=== PATIENT | female | born 2000 | race Caucasian/White ===

== ENCOUNTER 2023-10-19 19:54 | Observation (INO) | payer OTHER, SELFPAY ==
[2023-10-19] VITALS (7 sets, daily range): BP systolic 103–113; BP diastolic 64–78; PULSE 65–99; RESP 12–21; TEMP 36.6–37; O2SAT 100; BMI 21.9
--- NOTE | ~2023-10-19 | CT_ITS ---
EXAMINATION: CTA BRAIN/CAROTID DATE: 10/21/2023 12:23 INDICATION: Left hemispheric dysfunction TECHNIQUE: Computed tomographic angiography (CTA) of the head and neck was performed with 100 mL Omni paque-350 intravenous contrast. Multiplanar reconstructions and maximum intensity projection 3D-recon structions of the carotid arteries and of the intracranial arteries were created by the technologist on a separate workstation. Precontrast CT of the head was also obtained. Automated exposure control and iterative reconstruction technique were employed.The dose-length product was 1553.54 mGy-cm. COMPARISON: Head CT dated 10/19/2023 and brain MR dated 10/20/2023 FINDINGS: Carotid arteries: The visualized aortic arch and great vessels arising from the arch are normal in caliber with no athe rosclerotic plaque or dissection. There is no evident atherosclerotic plaque with 0% stenosis of the right and left carotid bulbs relative to normal distal artery lumen diameter (NASCET criteria). The v isualized upper lungs are clear. Cervical spine and cervical soft tissues are unremarkable. Head: Again seen is subtle decreased attenuation and swelling of the white matter and in places also includ ing the mello matter with loss of the mello-white matter differentiation in the anterior left frontal a nd temporal lobes. There was no corresponding restricted diffusion on the MRI from one day prior to s uggest acute infarct. There is small amount of associated mass effect with asymmetric narrowing of th e body the left lateral ventricle relative to the right and anterior predominant with up to 4 mm left -to-right midline shift. No acute intracranial hemorrhage or abnormal extra axial fluid collection. V entricles are normal and symmetric. No mass/mass effect. No abnormally enhancing brain lesions. The o rbits, paranasal sinuses and mastoid air cells are normal. Intracranial arteries There is no hemodynamically significant stenosis in the vertebral, basilar and internal carotid arter ies. Vertebral arteries are codominant. There are no aneurysms identified. Both A1 and P1 segments a re patent. There also patent anterior communicating and right posterior communicating arteries. Cereb ral arterial arborization appears symmetric. IMPRESSION: 1. No atherosclerotic plaque with 0% stenosis of the right carotid bulb relative to normal distal art romeo lumen diameter (NASCET criteria). 2. Normal cerebral CT angiogram. 3. Persistent edema involving both the white matter and focal regions of the mello matter in the left anterior frontal and temporal lobes with associated mass resulting in narrowing of the left lateral v entricle and up to 4 mm left to right midline shift anteriorly. No evident restricted diffusion on th e recent prior MRI to suggest acute infarction. Differential would also include infectious etiologies such as herpes encephalitis or neoplasm such as low-grade astrocytoma. Reviewed, dictated and finalized at location A. IMPRESSION: 1. No atherosclerotic plaque with 0% stenosis of the right carotid bulb relativ e to normal distal artery lumen diameter (NASCET criteria). 2. Normal cerebral CT angiogram. 3. Persistent edema involving both the white matter and focal regions of the gr ay matter in the left anterior frontal and temporal lobes with associated mass resulting in narrowing of the left lateral ventricle and up to 4 mm left to rig ht midline shift anteriorly. No evident restricted diffusion on the recent prio r MRI to suggest acute infarction. Differential would also include infectious e tiologies such as herpes encephalitis or neoplasm such as low-grade astrocytoma .
--- NOTE | ~2023-10-19 | CT_ITS ---
Non-contrast Head CT History: Seizure Technique: Axial non-contrast imaging of the brain was performed. Dose reduction technique was used on this scan by utilizing automated exposure control and iterative reconstruction technique. The dose -length product (DLP) was 605.33 mGy-cm. Findings: Suggestion of subtle loss of mello-white differentiation and subtle hypodensity in the anter ior left frontal lobe region, with subtle rightward midline shift of the anterior falx cerebri. The ventricles and subarachnoid spaces are normal in size. The calvarium appears normal. The visualized paranasal sinuses and mastoid air cells are clear. Impression: Subtle findings which raises the possibility of mild edematous change and possible mass effect in the left frontal lobe. Contrast-enhanced MRI of the brain recommended to better assess for any underlyin g structural abnormality or mass. Reviewed, dictated and finalized at [facility]. Impression: Subtle findings which raises the possibility of mild edematous change and possi ble mass effect in the left frontal lobe. Contrast-enhanced MRI of the brain re commended to better assess for any underlying structural abnormality or mass.
--- NOTE | ~2023-10-19 | MR_ITS ---
MRI of the brain Clinical History: Seizure Technique: Axial and sagittal T1-weighted images were acquired. These were followed by axial T2-weigh ac, diffusion weighted, gradient, and FLAIR images. Following intravenous administration of 12 cc Mu ltiHance gadolinium, T1-weighted fat-sat imaging was performed in the axial, coronal, and sagittal pl anes. Findings: There is extensive edematous change involving the left frontal lobe cortex and white matter with mild associated mass effect on the anterior falx cerebri. No restricted diffusion. No abnormal postcontrast enhancement or mass lesion identified. Remainder brain parenchyma is otherwise unremarkable. Ventricles and subarachnoid spaces otherwise ar e unremarkable. Paranasal sinuses and mastoid air cells are clear. Orbits are unremarkable. Major int racranial flow voids are intact. Sagittal midline structures are otherwise unremarkable. IMPRESSION: Extensive cortical and white matter edematous change of the left frontal lobe, without postcontrast e nhancement or definite evidence for underlying structural abnormality or mass. These findings are mos t likely post-ictal changes related to recent seizure activity. Consider follow-up exam in 1-2 months to assess for resolution. Reviewed, dictated and finalized at location . IMPRESSION: Extensive cortical and white matter edematous change of the left frontal lobe, without postcontrast enhancement or definite evidence for underlying structural abnormality or mass. These findings are most likely post-ictal changes related to recent seizure activity. Consider follow-up exam in 1-2 months to assess fo r resolution.
--- NOTE | 2023-10-19 20:21 | ED.GENADULT ---
HPI - General Adult General Chief complaint: Seizure Stated complaint: possible seizure-no history Time Seen by Provider: 10/19/23 20:14 History of Present Illness HPI narrative: 23 old female presents emergency department for evaluation after a suspected seizure while watching a movie. Has no prior history of epilepsy or seizures. Patient states that she was in the movie and family members stated that she had a seizure. Seizure lasted approximately 30 seconds. EMS was called. EMS states patient was postictal upon arrival. Upon arrival to the emergency department patient is still postictal but is more alert appropriate. Patient is present with both her sister and her mom. Related Data Home Medications Medication Instructions Recorded Confirmed No Home Medications 10/19/23 10/19/23 Allergies Allergy/AdvReac Type Severity Reaction Status Date / Time Penicillins Allergy Anaphylaxis Verified 10/19/23 23:30 Review of Systems Review of Systems: All systems reviewed & are unremarkable except as noted in HPI and below PMFSH Family History Family History (Updated 10/19/23 @ 23:22 by Jocelyn Villarreal RN) Grandparent Breast cancer Colon cancer Social History Social History Smoking status: Never smoker Second hand tobacco smoke exposure: No Alcohol intake: current Drinks per week: 1 Substance use: never Do You Feel Safe in your Home?: Yes Lack of Transportation: No Lack of Food: Sometimes True Current Housing: I Have Housing Concerned About Future Housing: No Difficulty Paying Gas/Electric Bills: No Difficulty Paying for Meds: No Currently Unemployed: No Education: Master's Degree or Higher Difficulty w/ Childcare or Family Care: No Spiritual care concerns: No Exam Narrative: APPEARANCE: Well appearing, no pain, no distress, well-nourished. HEAD: normocephalic, atraumatic. EYES: PERRLA/EOMI, conjunctivae clear. NOSE: Normal no drainage EARS:TMS clear with good light reflex. THROAT: Pharynx clear, no exudate. NECK: Supple. No adenopathy, no masses. RESPIRATORY: Airway patent, respirations nonlabored. Clear to auscultation bilaterally, no rales, rhonchi, wheezing. CARDIOVASCULAR: Regular rate and rhythm without murmurs rubs or gallops. ABDOMINAL: Soft, nontender, nondistended, normal bowel sounds MUSCULOSKELETAL: Moves all extremities. Strength/ROM intact, No edema, No calf tenderness. NEURO: Alert. Cranial nerves II through XII intact. Grossly intact SKIN: Warm, dry. Normal Color Course Course Emergency Course: patient will be admitted for further neurologic workup including MRI. Vital Signs Vital signs: Vital Signs Temperature 97.9 F 10/19/23 19:52 Pulse Rate 99 10/19/23 19:52 Respiratory Rate 10/19/23 19:52 Blood Pressure 113/78 10/19/23 19:52 Pulse Oximetry 100 10/19/23 19:52 Oxygen Delivery Room Air 10/19/23 19:52 Temperature 98.6 F 10/19/23 22:37 Pulse Rate 61 10/20/23 00:00 Respiratory Rate 10/19/23 22:37 Blood Pressure 103/64 10/19/23 22:37 Pulse Oximetry 100 10/19/23 22:37 Oxygen Delivery Room Air 10/19/23 23:31 Medical Decision Making MDM Narrative Medical decision making narrative: [age] old female presents to the emergency department for evaluation of new onset seizure. patient continued to be less post ictal on re-evaluations. Patient was afebrile with no leukocytosis and a stable hemoglobin of 13.1. Patient has no acute abnormalities on her CMP. UA was negative for acute infection. Head CT did show some edema of the left frontal lobe an MRI was requested. I discussed the case with Neurology and Dr. Rivers was comfortable consulting on this patient. Patient was admitted to the hospitalist an MRI was ordered. Patient family were updated on the recommendation for MRI, and on the findings of the head CT and that MRI would not be available until Saturday. They were comfortabl
[2023-10-19 20:57] LABS: Basophils Percent Auto 0.3 % (0.2-1.2); Eosinophils Absolute Auto 0.1 K/mm3 (0-0.3); Eosinophils Percent Auto 1.4 % (0-4.4); Hematocrit 38.5 % (37.0-47.0); Hemoglobin 13.1 g/dL (12.0-15.0); Immature Granulocyte Absolute 0.01 K/mm3 (0.00-0.031); Immature Granulocyte Percent A 0.2 % (0-0.5); Lymphocytes Absolute Auto 1.95 K/mm3 (0.9-3.2); Lymphocytes Percent Auto 30.8 % (18.3-44.2); Mean Corpuscular Hemoglobin 31.3 pg (26-34); Mean Corpuscular Volume 91.9 fl (80-100); Mean Platelet Volume 10.5 fl (7.4-10.4); Monocytes Absolute Auto 0.5 K/mm3 (0.1-0.6); Monocytes Percent Auto 8.5 % (2.6-8.5); Neutrophils Absolute Auto 3.7 K/mm3 (1.3-6.7); Neutrophils Percent Auto 58.8 % (45.5-73.1); Platelet Count Result 228 k/mm3 (150-375); Red Blood Count 4.19 M/mm3 (4.2-5.4); Red Cell Distribution Width 11.9 % (11.5-14.5); White Blood Count 6.3 K/mm3 (4.5-10.0)
[2023-10-19 21:07] LABS: Alanine Aminotransferase 17 U/L (6-35); Albumin Level 4.4 g/dL (3.5-5.1); Alkaline Phosphatase 42 U/L (38-126); Anion Gap 11 mmol/L (4-12); Aspartate Amino Transferase 21 U/L (14-36); Bilirubin,Total 0.6 mg/dL (0.2-1.3); Blood Urea Nitrogen 13 mg/dL (7-17); Calcium 9.1 mg/dL (8.4-10.2); Carbon Dioxide 23 mmol/L (22-30); Chloride 104 mmol/L (98-107); Estimated CRCL calculation 114 ml/min; Estimated Glomerular Filt Rate > 60; Glucose 89 mg/dL (65-110); Potassium 3.7 mmol/L (3.4-5.0); Sodium 138 mmol/L (137-145)
[2023-10-19 21:08] LABS: Lactic Acid Reflex 2.3 mmol/L (0.7-2.0)
--- NOTE | 2023-10-19 21:45 | PM.IMHP ---
H&P: HPI History of Present Illness Date/Time: 10/19/23 21:45 Chief Complaint: sizure Narrative: This is a 23-year-old female with known significant past medical history was at the movies with her family when she had a grand mal seizure episode. UPON ARRIVAL TO EMERGENCY ROOM PATIENT WAS POST ICTAL. PATIENT HAS BEEN IN HER USUAL STATE OF HEALTH UP UNTIL THIS POINT, DENIES ANY VISION CHANGES, HEADACHES, NAUSEA, VOMITING, CONSTIPATION, FEVERS, RIGORS, CHILLS DENIES PRODROMES. HERE AT THE TIME OF MY VISIT PATIENT WAS AWAKE ALERT ORIENTED X3 BUT HAS NO RECOLLECTION OF EVENTS. PRELIMINARY WORKUP WAS SIGNIFICANT FOR CT OF HEAD WITH CONCERNING FINDINGS. PATIENT HAS BEEN PLACED IN OBSERVATION Non-contrast Head CT History: Seizure Technique: Axial non-contrast imaging of the brain was performed. Dose reduction technique was used on this scan by utilizing automated exposure control and iterative reconstruction technique. The dose-length product (DLP) was 605.33 mGy-cm. Findings: Suggestion of subtle loss of mello-white differentiation and subtle hypodensity in the anterior left frontal lobe region, with subtle rightward midline shift of the anterior falx cerebri. The ventricles and subarachnoid spaces are normal in size. The calvarium appears normal. The visualized paranasal sinuses and mastoid air cells are clear. Impression: Subtle findings which raises the possibility of mild edematous change and possible mass effect in the left frontal lobe. Contrast-enhanced MRI of the brain recommended to better assess for any underlying structural abnormality or mass. Review of Systems Review of Systems: SEIZURE Constitutional: Constitutional: Denies chills, Denies fever(s), Denies headache(s) and Denies night sweats Eyes: Eyes: Denies change in vision ENT: Denies dysphagia, Denies vertigo, Denies dizziness and Denies odynophagia Cardiovascular: Cardiovascular: Denies chest pain and Denies lightheadedness Respiratory: Respiratory: Denies chest congestion and Denies cough Gastrointestinal: Gastrointestinal: Denies abdominal pain, Denies constipation, Denies nausea and Denies vomiting Genitourinary: Genitourinary: Denies dysuria Musculoskeletal: Musculoskeletal: Denies myalgias and Denies muscle weakness Integumentary/Breasts: Skin/Breast: Denies rash Neurologic: Denies focal weakness, Reports seizure-like activity and Denies Sensory deficit (Neuro) Psychiatric: Psychiatric: Reports no additional psychiatric complaints and Reports as per HPI Endocrine: Endocrine: Denies cold intolerance, Denies heat intolerance, Denies polyphagia, Denies polydipsia, Denies polyuria and Denies palpitations Hematologic/Lymphatic: Hematologic/Lymphatic: Reports no additional hematologic/lymphatic complaints and Reports as per HPI Allergic/Immunologic: Allergic/Immunologic: Reports no additional allergic/immunologic complaints and Reports as per HPI [facility] Family History Family History Grandparent Breast cancer Colon cancer Social History Social History Smoking status: Never smoker Second hand tobacco smoke exposure: No Alcohol intake: current Drinks per week: 1 Substance use: never Do You Feel Safe in your Home?: Yes Lack of Transportation: No Lack of Food: Sometimes True Current Housing: I Have Housing Concerned About Future Housing: No Difficulty Paying Gas/Electric Bills: No Difficulty Paying for Meds: No Currently Unemployed: No Education: Master's Degree or Higher Difficulty w/ Childcare or Family Care: No Spiritual care concerns: No Meds Home Medications and Allergies Home Medications Medication Instructions Recorded Confirmed Type No Home Medications 10/19/23 10/19/23 History Allergies Allergy/AdvReac Type Severity Reaction Status Date / Time Penicillins Allergy Anaphylaxi
[2023-10-19 21:53] LABS: Appearance Urine Clear (Clear); Bilirubin Urine Negative (Negative); Blood Urine Negative (Negative); Color Urine Yellow (Yellow); Glucose Urine UA Negative (Negative); Ketones Urine Negative (Negative); Leukocyte Esterase Ur Negative LEU/UL (Negative); Nitrate Urine Negative (Negative); Protein Urine Negative (Negative); Urobilinogen Urine 0.2 mg/dL (<2.0); pH Urine 7.5 (5.0-9.0)
[2023-10-19 21:55] LABS: Add Urine Microscopic? NO
[2023-10-19] MEDS: ACETAMINOPHEN 325 MG TABLET 650 MG PO (22:01)
[2023-10-19] MEDS: ONDANSETRON INJ 4 MG/2 ML VIAL (22:02)
--- NOTE | 2023-10-19 22:48 | ADMGEN ---
This patient, Jeanine Sanchez, was admitted to Medical Room 349-01. Patient/family oriented to hospital policies and general routines including ID bracelet, bed and alarms, visiting hours, pain management, procedures, bathroom and other care routines, personal items, smoking policy, room service/diet, and visiting hours. Information on how to activate the Rapid Response Team has been discussed. Patient/Family are encouraged to report perceived risks to care and to ask questions if they do not understand what they are told or what they should do.
[2023-10-19 23:55] LABS: Reflex Lactic Acid Yes or No Add Lactic
[2023-10-20] VITALS (9 sets, daily range): BP systolic 89–106; BP diastolic 43–53; PULSE 47–83; RESP 18–20; TEMP 36.4–36.6; O2SAT 98–100
[2023-10-20 00:34] LABS: Lactic Acid 0.9 mmol/L (0.7-2.0)
--- NOTE | 2023-10-20 12:21 | WPDNEURCNPN ---
Assessment and Plan Assessment and plan (1) Seizure: Code(s): R56.9 - Unspecified convulsions Status: Acute Plan Ms. Sanchez is a 23 year old female with no significant past medical history presenting due to concerns for new onset seizure that is seemingly unprovoked. CT head showed some edematous changes in the L frontal lobe, which can be seen after a seizure. Will obtain MRI brain to rule out mass or other structural defect. Plan for routine EEG tomorrow. I discussed with patient that given this is her first time seizure, there is a 50% chance she may have another seizure in the future. Typically I wait until patient has had two unprovoked seizures prior to starting anti-seizure medications, unless of course her MRI brain shows a structural cause for her seizure or EEG shows abnormalities that would suggest risk of recurrence. I would also be okay starting seizure medication at this point if patient wishes. She would like to discuss with family and weight until the imaging/EEG are done to decide which I think is appropriate. Regardless of decision for seizure medication, seizure precautions and restrictions are in place. I discussed seizure precautions and let her know that she cannot drive or operate heavy machinery until she is seizure free for at least six months. If patient is agreeable to start anti-seizure medication, would recommend Keppra 500mg BID. Consult date: 10/20/23 Reason for consult: New onset seizure HPI: Jeanine Sanchez is a 23 year old female with no significant past medical history presenting due to concerns for new onset seizure. Patient presented on 10/18 after have a seizure while at the movie theatre. Patient was sitting in between her mother and sister. During the previews of the movie, patient states she turned to her mom to try to speak but was unable to. They noted that she had movement of one side of the face but none on the other side of the face. She is not sure which side was involved as she has no memory of the event. She was reportedly then foaming at the mouth and has full body jerking movements. There was no incontinence. The episode lasted about 30 seconds and then self-resolved. EMS was called. Patient was confused afterwards. Today she feels back to her baseline. She denies any prior history of seizures, TBI, meningitis. There is a family history of seizures in her paternal cousin (he had seizures in childhood and outgrew them). Patient denies any drug or alcohol use. UDS was not obtained. CT head showed subtle findings raising the possibility of mild edematous changes/possible mass effect in the L frontal lobe. Patient is currently visiting from [place] but will be moving to [place] permanently for work in about 6 weeks. 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 Review of Systems Review of Systems: All systems reviewed & are unremarkable except as noted in HPI and below PMFSH Family History Family History Grandparent Breast cancer Colon cancer Social History Social History Smoking status: Never smoker Second hand tobacco smoke exposure: No Alcohol intake: current Drinks per week: 1 Substance use: never Do You Feel Safe in your Home?: Yes Lack of Transportation: No Lack of Food: Sometimes True Current Housing: I Have Housing Concerned About Future Housing: No Difficulty Paying Gas/Electric Bills: No Difficulty Paying for Meds: No Currently Unemployed: No Education: Master's Degree or Higher Difficulty w/ Childcare or Family Care: No Spiritual care concerns: No Meds Home Medications and Allergies Home Medications Medication Instructions Recorded Confirmed Type No Home Medications 10/19/23 10/19/23 History Allergies Allergy/AdvReac Type Severity Reaction Status Date / Time Penicillins Aller
--- NOTE | 2023-10-20 12:58 | PM.IMPN ---
Progress Note: A&P Assessment and Plan (1) Seizure: Code(s): R56.9 - Unspecified convulsions Status: Acute Assessment and Plan: MRI brain done and report pending EEG for 10/20 Patient and family considering whether to begin seizure medication now after her 1st episode or to defer in order to determine whether she will have another episode They understand treatment is recommended if MRI or EEG show structural or electrical abnormality, respectively Subjective Date/time seen: 10/20/23 12:58 Interval history: Admitted 10/19 after experiencing new onset generalized tonic colonic seizure in a movie theater. No prior history of seizures febrile convulsions or head trauma. No prior medical issues of any type. Rare migraine headaches. Tolerated diet. Did not injure herself during the seizure. Was not incontinent during the seizure. Review of Systems Review of Systems: All systems reviewed & are unremarkable except as noted in HPI and below Exam Narrative: HEENT: PERRL, sclerae nonicteric, pharyngeal mucosa pink and intact NECK: No JVD, adenopathy, or thyromegaly CHEST: Clear to auscultation. Normal effort. HEART: NL S1/S2, regular, no murmur ABDOMEN: BS+, soft, nontender, no mass, no bruits EXTREMITIES: No cyanosis, edema, or clubbing NEUROLOGIC: CN intact and symmetric to inspection. MUSCULOSKELETAL: Tone and strength symmetric. PSYCH: Alert. Oriented to person, place, and time. Objective Data Vital Signs Vital Signs: Vital Signs - 24 hr 10/19/23 19:52 10/19/23 19:56 10/19/23 19:56 Temperature 97.9 F Pulse Rate 99 93 Respiratory Rate 20 Blood Pressure 113/78 Pulse Oximetry 100 100 Oxygen Delivery Room Air Room Air 10/19/23 19:56 10/19/23 21:15 10/19/23 21:33 Temperature Pulse Rate 83 87 Respiratory Rate 21 H 14 Blood Pressure 111/74 Pulse Oximetry 100 100 Oxygen Delivery Room Air 10/19/23 21:45 10/19/23 22:00 10/19/23 23:31 Temperature Pulse Rate 80 73 Respiratory Rate 12 13 Blood Pressure Pulse Oximetry 100 100 Oxygen Delivery Room Air 10/19/23 22:37 10/20/23 00:00 10/20/23 04:00 Temperature 98.6 F Pulse Rate 65 61 47 L Respiratory Rate 20 Blood Pressure 103/64 Pulse Oximetry 100 Oxygen Delivery 10/20/23 06:00 10/20/23 07:41 10/20/23 08:00 Temperature 97.9 F Pulse Rate 53 L Respiratory Rate 20 Blood Pressure 89/43 L Pulse Oximetry 100 99 Oxygen Delivery Room Air Room Air 10/20/23 08:00 Temperature Pulse Rate 53 L Respiratory Rate Blood Pressure Pulse Oximetry Oxygen Delivery Intake/Output Intake/Output: Intake & Output 10/17/23 10/18/23 10/19/23 10/20/23 23:59 23:59 23:59 23:59 Intake Total 480 Balance 480 Meds/Results Medications: Active Medications Generic Name Dose Route Start Last Admin Trade Name Freq PRN Reason Stop Dose Admin Acetaminophen 650 mg 10/19/23 21:39 10/19/23 22:01 Acetaminophen 325 Mg Tablet PO 650 mg Q4H PRN Administration Mild Pain (1-3) or Fever Radiology Results: ITS Impressions Head CT 10/19/23 20:43 Impression: Subtle findings which raises the possibility of mild edematous change and possible mass effect in the left frontal lobe. Contrast-enhanced MRI of the brain recommended to better assess for any underlying structural abnormality or mass. Labs Labs: Laboratory Results - last 24 hr 10/19/23 10/19/23 10/20/23 20:52 21:44 00:18 WBC 6.3 RBC 4.19 L Hgb 13.1 Hct 38.5 MCV 91.9 MCH 31.3 MCHC 34.0 RDW 11.9 Plt Count 228 MPV 10.5 H Immature Gran % (Auto) 0.2 Neut % (Auto) 58.8 Lymph % (Auto) 30.8 [place] % (Auto) 8.5 Eos % (Auto) 1.4 Baso % (Auto) 0.3 Lymph # (Auto) 1.95 [place] # (Auto) 0.5 Eos # (Auto) 0.1 Baso # (Auto) 0.0 Abs Immat Gran (auto) 0.01 Absolute Neuts (auto) 3.7 Absolute Nucleated RBC 0.000 Nucleated RBC % 0
[2023-10-21] VITALS (10 sets, daily range): BP systolic 93–120; BP diastolic 60–78; PULSE 46–94; RESP 18–20; TEMP 36.1–36.4; O2SAT 93–100
--- NOTE | 2023-10-21 | ECHO_ITS ---
Patient Info Name: Jeanine Sanchez Age: 23 years : 2000 Gender: Female Ht: 65 in Wt: 132 lbs BSA: 1.66 m2 HR: 63 bpm BP: 93 / 60 mmHg Technical Quality: Good Exam Date: 10/21/2023 1:58 PM Exam Location: Echo Lab Patient Status: Outpatient Admit Date: 10/19/2023 Staff Ordering Physician: Una Voss MD Veterinary Anatomist: Sathish Childers RDCS Attending Provider: Jon Gore MD Referring Physician: Bipin GUILLERMO; Exam Type: CA echo doppler w bubble study Study Info Indications - Left hemispheric dysfunction Complete two-dimensional, color flow and Doppler transthoracic echocardiogram is performed with agitated saline. Contrast/Agitated Saline Contrast/Ag. Saline: Agitated Saline Amount: 8.00 ml Existing IV Access: Yes Summary 1. Left ventricular chamber dimension is normal. 2. Left ventricular systolic function is normal, estimated at 60-65%. 3. The left ventricular diastolic function is normal. 4. E/e' 5 is not elevated. 5. There is trace tricuspid valve regurgitation. 6. No pulmonary hypertension, estimated pulmonary arterial systolic pressure is 16 mmHg. Left Ventricle E/e' 5 is not elevated. Left ventricular chamber dimension is normal. Left ventricular systolic function is normal, estimated at 60-65%. The left ventricular diastolic function is normal. Right Ventricle Right ventricular systolic function is normal and with normal TAPSE 2.2 cm. Right ventricular chamber dimension is normal. Left Atria Left atrial chamber dimension is normal. Right Atria Right atrial chamber dimension is normal. Atrial Septum Agitated saline injection with valsalva maneuver opacified right side cardiac chambers without shunt to left side cardiac chambers. Intact interatrial septum visualized by 2D and agitated saline imaging. Aortic Valve The aortic valve is trileaflet. There is no aortic valve stenosis. There is no aortic valve regurgitation. Pulmonic Valve There is no pulmonic regurgitation. Mitral Valve There is no mitral valve stenosis. There is no mitral valve regurgitation. Tricuspid Valve There is trace tricuspid valve regurgitation. No pulmonary hypertension, estimated pulmonary arterial systolic pressure is 16 mmHg. Pericardium/Pleural There is no pericardial effusion. Inferior Vena Cava Normal inferior vena cava with >50% collapse upon inspiration consistent with normal right atrial pressure, 5 mmHg. Aorta The aortic root size at the sinus of Valsalva is normal. Left Ventricular Outflow Tract Name Value Normal LVOT 2D LVOT Diameter 2.0 cm LVOT Doppler LVOT Peak Gradient 5 mmHg LVOT Mean Gradient 3 mmHg LVOT VTI 22 cm LVOT VTI/AV VTI Ratio 0.9 LVOT Stroke Volume 72 ml LVOT CO 4.9 l/min LVOT CI 3.0 l/min/m2 Pulmonic Valve Name Value Normal
--- NOTE | 2023-10-21 11:49 | WPDNEUROPN ---
Progress Note: A&P Assessment and Plan (1) Brain edema: Code(s): G93.6 - Cerebral edema Status: Acute (2) Seizure: Code(s): R56.9 - Unspecified convulsions Status: Acute Plan The widespread edema is of concern in a 23-year-old without any history of trauma or prior history of any significant medical problems. Vasogenic edema or postictal state or trauma or encephalitis come to differential diagnosis however patient is fairly clear mentally and does not show any findings on the neurologic examination today. She has been fairly stable even yesterday. Just a echocardiogram with bubble study to look for any shunt and CT angiogram. I spoke to the hospitalist Dr. Alatorre and we also discussed the possibility of spinal tap if she has any changes in mental status. She is from [place] and would like to return back there. A follow-up study of the brain in 2 months is recommended unless of course there are any other issues. I also given the option to consider starting on seizure medication in view of the abnormality overall risk will be around 40% nevertheless it in option to them. An EEG is also pending. I shall go over the results of these. Thank you. Subjective Date/time seen: 10/21/23 11:49 Interval history: Patient's 23 year or presented with a seizure-like spell. Her mother and sister were present at the time of this evaluation. She is visiting from [place] and will be moving to this area in December. The patient today was in a movie [employer] when she had a sudden change in her physical condition where she could not talk and appear to be weak on the right side of the body. Her family thought that she was having a stroke. Thereafter she had a full-blown seizure and she was confused for a while. Ambulance was called and she was brought to the hospital. She now has returned back to normal and not had any further symptoms. She denies any headache nausea vomiting. She has not had any recent illness or injury. No prior history of stroke. MRI of the brain shows significant edema on the left side of the brain in frontal area extending widely. No tumor or vascular abnormalities identified on the contrast examination. Patient has not had any confusional state. No history of drug abuse. Review of Systems Review of Systems: No febrile illness. Patient denies any other symptoms at this time. Exam Const: General: cooperative, well developed and alert Orientation/consciousness: patient oriented x3 HENMT: Head: atraumatic Mouth: Yes oropharynx normal Eyes: Alignment and Position: position normal Pupils: Equal, round and reactive pupils present EOM: EOMs intact bilaterally Neck: Neck: supple Resp: Effort & Inspection: normal respiratory effort Neuro: General: patient oriented x3 Cranial nerves: Yes CN's II-XII intact bilaterally, Yes facial sensation intact/muscles of mastication intact, Yes Equal, round and reactive pupils present, Yes facial symmetry and Yes Midline tongue present Cognition (Neuro): normal cognition Speech: normal speech Gait exam (Neuro): Normal gait present Motor exam (neuro): 5/5 motor strength present throughout Sensory Exam: normal sensation Coordination: [id number] test normal and Normal rapid alternating movements of the distal upper extremity present (Neuro) Objective Data Vital Signs Vital Signs: Vital Signs - 24 hr 10/20/23 14:12 10/20/23 16:00 10/20/23 20:00 Temperature 36.6 C Pulse Rate 62 72 72 Respiratory Rate 18 18 Blood Pressure 106/53 L Pulse Oximetry 100 100 Oxygen Delivery Room Air 10/20/23 20:00 10/20/23 22:00 10/21/23 00:00 Temperature 36.4 C L Pulse Rate 83 77 53 L Respiratory Rate 20 Blood Pressure 104/53 L Pulse Oximetry 98 Oxygen Delivery 10/21/23 04:00 10/21/23 06:00 10/21/23 08:00 Temperature 36.1 C L Pulse Rate 46 L 63 Respiratory Rate 20 Blood Pressure 93/60 L Pulse Oximetry 100 Oxygen Del
--- NOTE | 2023-10-21 12:48 | ECG_ITS ---
Test Date: 2023-10-21 13:01:12 Measurements Intervals [place] Rate: 62 P: 70 [place]: 145 QRS: 61 QRSD: 79 T: 58 QT: 374 QTc: 381 Interpretive Statements SINUS RHYTHM WITH SINUS ARRHYTHMIA NORMAL ECG No previous ECG available for comparison Electronically Signed On 10-21-2023 18:03:30 CDT by Daniel Salgado D.O.
--- NOTE | 2023-10-21 16:59 | PM.IMPN ---
Progress Note: A&P Assessment and Plan (1) Brain edema: Code(s): G93.6 - Cerebral edema Status: Acute (2) Seizure: Code(s): R56.9 - Unspecified convulsions Status: Acute Plan Discussed with Dr. Voss. Patient has cerebral edema with mass effect status post and mild seizure. However, unable to rule out other serious etiologies and unclear if this cerebral edema is a cause or result of the seizure. Patient no longer appropriate for stay at this facility. Transfer [facility] to [facility] has been [facility]. Continue close monitoring and await transfer. Seizure precautions. Full code. Lovenox. Subjective Date/time seen: 10/21/23 16:59 Interval history: Complaining of worsening blurry vision. No other complaints. Review of Systems Review of Systems: All systems reviewed & are unremarkable except as noted in HPI and below (Subjective) Exam Const: General: comfortable and no acute distress Eyes: Pupils: Equal, round and reactive pupils present Neck: Neck: supple Resp: Effort & Inspection: normal respiratory effort Auscultation: clear to auscultation bilaterally Cardio: Rate: regular rate Rhythm: regular rhythm GI: GI Palp: Yes Soft to palpation Objective Data Vital Signs Vital Signs: Vital Signs - 24 hr 10/20/23 20:00 10/20/23 20:00 10/20/23 22:00 Temperature 97.5 F L Pulse Rate 72 83 77 Respiratory Rate 18 20 Blood Pressure 104/53 L Pulse Oximetry 100 98 Oxygen Delivery Room Air 10/21/23 00:00 10/21/23 04:00 10/21/23 06:00 Temperature 97.0 F L Pulse Rate 53 L 46 L 63 Respiratory Rate 20 Blood Pressure 93/60 L Pulse Oximetry 100 Oxygen Delivery 10/21/23 08:00 10/21/23 13:09 10/21/23 13:10 Temperature Pulse Rate 77 79 Respiratory Rate 18 18 Blood Pressure 114/77 120/78 Pulse Oximetry 94 93 Oxygen Delivery Room Air 10/21/23 08:00 10/21/23 12:00 10/21/23 16:00 Temperature Pulse Rate 56 L 70 81 Respiratory Rate Blood Pressure Pulse Oximetry Oxygen Delivery Intake/Output Intake/Output: Intake & Output 10/18/23 10/19/23 10/20/23 10/21/23 23:59 23:59 23:59 23:59 Intake Total 1150 980 Balance 1150 980 Meds/Results Medications: Active Medications Generic Name Dose Route Start Last Admin Trade Name Freq PRN Reason Stop Dose Admin Acetaminophen 650 mg 10/19/23 21:39 10/19/23 22:01 Acetaminophen 325 Mg Tablet PO 650 mg Q4H PRN Administration Mild Pain (1-3) or Fever Enoxaparin Sodium 40 mg 10/21/23 09:00 10/21/23 09:30 Enoxaparin 40 Mg/0.4 Ml Syringe SUB-Q Not Given DAILY AIMEE Perflutren Lipid Microsphere 0 ml 10/21/23 11:47 Perflutren Lipid Microspheres 1.5 Ml Vial Diluted To 10 Ml Total Volume IV PUSH 10/24/23 11:48 ONCE PRN adequate visualization Protocol Radiology Results: ITS Impressions Head CT 10/19/23 20:43 Impression: Subtle findings which raises the possibility of mild edematous change and possible mass effect in the left frontal lobe. Contrast-enhanced MRI of the brain recommended to better assess for any underlying structural abnormality or mass. Brain MRI 10/20/23 14:48 IMPRESSION: Extensive cortical and white matter edematous change of the left frontal lobe, without postcontrast enhancement or definite evidence for underlying structural abnormality or mass. These findings are most likely post-ictal changes related to recent seizure activity. Consider follow-up exam in 1-2 months to assess for resolution. Head/Neck CTA 10/21/23 12:26 IMPRESSION: 1. No atherosclerotic plaque with 0% stenosis of the right carotid bulb relative to normal distal artery lumen diameter (NASCET criteria). 2. Normal cerebral CT angiogram. 3. Persistent edema involving both the white matter and focal regions of the mello matter in the left anterior frontal and temporal lobes with associated mass resulting in narrowing of the left latera
[2023-10-21] MEDS: ACETAMINOPHEN 325 MG TABLET 650 MG PO (17:22)
[2023-10-22] VITALS: PULSE 59
--- NOTE | 2023-10-22 12:54 | PM.TDS ---
Transfer Discharge Sum: Prov Provider Date of admission: 10/19/23 21:39 Primary care physician: PHYSICIAN NOT ON STAFF Admitting clinician: Jon Gore MD Attending physician on admission: Jon Gore Consults: 10/19/23 Consult to Physician Routine Comment: Consulting Provider: Osiris Rivers Reason for consultation: First-time seizure, frontal lobe edema Has provider been notified: Yes Attending physician on discharge: Celi Gamino Discharging clinician: Celi Gamino Anticipated date of transfer: 10/22/23 Receiving physician/facility: Dr. Troy Pham to neuro tele floor. DS: Admitting Diagnosis Discharge Date 10/22/23 Admitting Diagnosis Grand mal seizure DS: Discharge Diagnosis Discharge Diagnosis (1) Brain edema: Code(s): G93.6 - Cerebral edema Status: Acute (2) Seizure: Code(s): R56.9 - Unspecified convulsions Status: Acute Transfer Discharge Sum: Med Medications Active and Home Medications: Home Medications No Home Medications 10/19/23 [History Confirmed 10/19/23] Transfer Discharge Sum: Hosp Hospital Course Hospital course: Jeanine Sanchez is a 23 year old female with no prior PMH. She has recently graduated from college. She is visiting with her sister and mom from [place], looking for apartments in the [facility] as she is anticipating starting a new job. The patient was in her usual state of health, she was with her family when she was witnessed to have a grand mal seizure. Brought in to [facility] and a post ictal state and admitted on 10/19/2023. Her postictal state resolved, however head CT noted possibility of edematous change in possible mass effect in the left frontal lobe. MRI brain performed on 10/19 demonstrated extensive cortical and white matter edematous change of the left frontal lobe without post contrast enhancement of definite underlying structural abnormality or mass. Subsequently a CTA of head and neck was performed which did not demonstrate any atherosclerotic plaques. Again demonstrated persistent edema in the left anterior frontal and temporal lobes with mass effect calculated as 4 mm left to right midline shift anteriorly. Neurology specialists were consulted. LP was not performed due to the midline shift. On 10/20 the patient complained of blurry vision. Her visual herrera were intact and the rest of her neurologic examination was normal however the blurry vision was progressively worsening. Patient was stable but required subspecialty support with Neurosurgery and therefore was transferred on 10/21 in stable condition to [facility] to the tele Neuro floor accepted by Dr. Simmons. She was full code. Time Spent with Patient Time attestation: Total time spent providing and/or coordinating transfer services: Greater than 45 minutes Exam Const: General: comfortable and no acute distress HENMT: Mouth: Yes moist mucous membranes Eyes: Pupils: Equal, round and reactive pupils present Neck: Neck: supple Resp: Effort & Inspection: normal respiratory effort Auscultation: clear to auscultation bilaterally Cardio: Rate: regular rate Rhythm: regular rhythm GI: GI Palp: Yes Soft to palpation and No Tenderness to palpation present (GI) Neuro: General: gait normal and deep tendon reflexes 2+ bilaterally Speech: normal speech Motor exam (neuro): 5/5 motor strength present throughout Other: Visual herrera intact. Cranial nerves 2-12 grossly intact. Extrem: General: no edema
== END 2023-10-22 01:15 ==
LOC: ANHED 20:52 → ANH3MED 10-20 14:55
PROVIDERS: Admitting Provider Internal Medicine; Emergency Provider Emergency Medicine; Visit Provider General Practice
DX: G93.6 Cerebral edema (principal); R56.9 Unspecified convulsions
CPT/HCPCS: 36415; 70450; 70496; 70498; 70553; 80053; 81003; 81025; 83605; 85025; 93005; 93306; 96374; 96375; 99285; A9270; A9577; G0378; J2405; Q9967